=== PATIENT | female | born 1965 | race Caucasian/White ===

== ENCOUNTER 2020-07-25 06:27 | Day surgery (SDC) | payer OTHER ==
--- OUTSIDE RECORDS SUMMARY | 2020-07-25 06:30 | XMS ---
:1965 Author Organization [facility] Care Team Providers Name Role Phone BIANKA MCWILLIAMS Unavailable Unavailable SIM LARES Unavailable Unavailable TEENA FONSECA, [id number] Unavailable Unavailable BLANCA MOCTEZUMA Unavailable Unavailable PANCHO MARIE Unavailable Unavailable INDU TRENT Unavailable Unavailable SHAUN CUBA Unavailable SHAUN CUBA Unavailable JEVON BRIZUELA Unavailable Unavailable ERMELINDA MANNING Unavailable Unavailable Re-disclosure Warning The records that you are about to access may contain information from federally- assisted alcohol or drug abuse programs. If such information is present, then the following federally mandated warning applies: This information has been disclosed to you from records protected by federal confidentiality rules (42 CFR part 2). The federal rules prohibit you from making any further disclosure of this information unless further disclosure is expressly permitted by the written consent of the person to whom it pertains or as otherwise permitted by 42 CFR part 2. A general authorization for the release of medical or other information is NOT sufficient for this purpose. The Federal rules restrict any use of the information to criminally investigate or prosecute any alcohol or drug abuse patient.The records that you are about to access may contain highly sensitive health information, the redisclosure of which is protected by Article 27-F of the [facility] Public Health law. If you continue you may haveaccess to information: Regarding HIV / AIDS; Provided by facilities licensed or operated by the [facility] Office of Mental Health; or Provided by the [facility] Office for People With Developmental Disabilities. If such information is present, then the following [facility] mandated warning applies: This information has been disclosed to you from confidential records which are protected by state law. State law prohibits you from making any further disclosure of this information without the specific written consent of the person to whom it pertains, or as otherwise permitted by law. Any unauthorized further disclosure in violation of state law may result in a fine or residential sentence or both. A general authorization for the release of medical or other information is NOT sufficient authorization for further disclosure. Allergies and Adverse Reactions Type Description Substance Reaction Status Data Source(s ) Food allergy No Known Food No Known Food [facility] Allergies [facility] Drug allergy No Known Allergies No Known [facility] Allergies [facility] Care [facility] Drug allergy No Known Drug No Known Drug [facility] Encounters Encounter Providers Location Date Indications Data Source(s ) Attender: SHAUN 07/03/2020 [facility] Attender: SHAUN CUBA 07/03/2020 12:00:00 AM EDT [facility] ([facility]) Office Attender: SHAUN CUBA 07/03/2020 12:00:00 AM EDT [facility] ([facility]) Office Attender: SHAUN CUBA 07/03/2020 12:00:00 AM EDT [facility] ([facility]) Office Outpatient Attender: MILEY 06/13/2020 03:23:00 C82.97 [facility] MILEY EDT H ealt Care HUMAYUNReferrer: MCWILLIAMS Keven yomaira CARLTON C82.97 Outpatient Attender: OJ 03/16/2020 11:12:00 C82.97 [facility] AM EDT He alth Care HUMAYUNReferrer: OJ Keven yomaira OLIVEROSONG C82.97 Outpatient Attender: OJ 12/03/2019 06:00:00 C82.20 [facility] AM [facility] JEVON CrenshawAdmitter: Luisana Meadowserrer: DOMO MCWILLIAMSONG C82.20 Outpatient Attender: CHATA, 11/18/2019 01:57:00 C83.30 [facility] CHATA PM EST H ealth Care ZVIReferrer: OJ Corpora tion BIANKA C83.30 Outpatient Attender: OJ, 11/18/2019 11:08:00 C83.30 [facility] OJ AM EST Heal th Care DELONGReferrer: OJ Kevin oration BIANKA C83.30 Outpatient Attender: OJ, 09/23/2019 01:08:00 C82.97 [facility] HealthcareAd[facility] OJ PM EST [facility]al th Care DELONGReferrer: OJ Kevin oration BIANKA C82.97 Outpatient Attender: CHATA, 09/09/2019 06:00:00 C82.20 [facility] CHATA AM EST H ealth Care ZVIReferrer: MCWILLIAMS Corpora tion BIANKA C82.20 Outpatient Attender: OJ, 09/02/2019 06:00:00 C82.20 [facility] HealthcareAd[facility] AM EDT Health [facility] PATITO BRIZUELAeferrer: Omkar orporation BIANKA MCWILLIAMS C82.20 Outpatient Attender: OJ, 08/10/2019 03:48:00 C82.20 [facility] HealthcareAd[facility]: OJ PM EDT Heal th Care DELONGReferrer: OJ Kevin oration BIANKA C82.20 Outpatient Attender: NIGEL, 04/01/2019 07:00:00 D80.1 [facility] TAUSEEFAdmitter: CYNTHIA AM EDT Health Care MICHAELReferrer: OJ Cor poration BIANKA D80.1 Outpatient Attender: OJ, 03/11/2019 C83.00 [id number] [facility] LUDA, 06:00:00 AM EDT Health Care MITCHELLReferrer: OJ Co rporation BIANKA C83.00 [id number] Outpatient Attender: OJ, 02/25/2019 C83.30 [id number] [facility]villeAd[facility]: OJ, 06:00:00 AM EDT [id number] Health Care DELONGReferrer: Kevin MCWILLIAMS oration BIANKA C83.30 [id number] Outpatient Attender: [id number] MARIAN, 02/24/2019 10:11:00 C8 3.30 [facility] JOHNAdmitter: [id number] AM EDT [facility] Care TEENA FONSECAReferrer: BLANCA Reyes C83.30 Outpatient Attender: OJ 02/22/2019 C83.30 [id number] [facility] DELONGAdmitter: OJ, 06:00:00 AM EDT [id number] 1 Health Care DELONGReferrer: Kevin MCWILLIAMS oration BIANKA C83.30 [id number] Outpatient Attender: CHATA, 01/25/2019 06:00:00 C83.30 [facility] ZVIAdmitter: CHATA AM [facility] ZVIReferrer: OJAnatoliya tisanthosh CARLTON C83.30 Outpatient Admitter: CHATA, 04/09/2018 06:00:00 AM [facility] EDT Health Care Co rporation Insurance Providers Payer name Policy type Policy ID Covered Covered constitution party's Policy P arielle / Coverage constitution party ID relationship to [employer] ormation type davis HIP MEDICARE [id number] [place] [id number] 1 [id number] PART B [facility] [id number] [facility] [id number] HEALTH PLAN Problems, Conditions, and Diagnoses Code Display Name Description Problem Effective Data Type Dates Source(s) M79.67 Pain in left foot PAIN IN LEFT FOOT Problem 07/03/2020 [facility] ([facility] 12:00:00 [facility]) M79.67 Pain in right foot PAIN IN RIGHT FOOT Problem 0 [facility] ([facility] 12:00:00 [facility] M20.12 Hallux valgus HALLUX VALGUS Problem 07/03/2020 [facility] ( St (acquired), left foot (ACQUIRED), LEFT FOOT 12: 00:00 [facility], ) M20.11 Hallux valgus HALLUX VALGUS Problem 07/03/2020 [facility] ( St (acquired), right foot (ACQUIRED), RIGHT FOOT 1 2:00:00 Teena's AM [facility] Medical, ) 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, FOLLICULAR LYMPHOMA, Diagnosis 06/13 [place] unspecified, spleen UNSPECIFIED, SPLEEN 03:23:0 0 [facility] [employer] C82.20 Follicular lymphoma FOLLICULAR LYMPHOMA Diagnosis [address] [place] [address] grade III, unspecified, GRADE III, UNSPECIFIED, 06:00:00 [facility] unspecified site UNSPECIFIED SITE [facility] [employer] 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 Diagnosis 11/18 [place] lymphoma, unspecified LYMPHOMA, UNSPECIFIED 01: 57:00 [facility] [employer] 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 07: 00:00 On license of [facility] [employer] R59.0 Localized enlarged LOCALIZED ENLARGED Diagnosis 8 [place] lymph nodes LYMPH NODES 06:00:00 On license of [facility] [employer] J34.89 Other specified OTHER SPECIFIED Diagnosis 04/09/2018 [place] disorders of nose and DISORDERS OF NOSE AND 06: 00:00 [facility] nasal sinuses NASAL SINUSES [facility] Surgeries/Procedures Procedure Description Date Indications Data Source(s) OFFICE OUTPATIENT NEW 07/03/2020 [facility] (Gt's 20 MINUTES 12:00:00 AM [facility] Medical, ) Results ID Date Data Source [id number] 07/21/2020 01:19:00 PM EDT [facility] Name Value Range Interpretation Description Data Sup porting Code Source(s) Document(s ) SARS [facility] coronavirus 2 RNA This lab was ordered by [facility] and reported by [facility]. Procedure Social History Code Duration Value Status Description Data Source(s ) Smoking 07/03/2020 Unknown if ever completed Unknown if ever [facility] EN (Gt's 12:00:00 AM EDT smoked smoked Medical, )
[2020-07-25 06:50] VITALS: BMI 21.2
[2020-07-25] MEDS ORDERED: DEXAMETHASONE SOD PHOSPHATE 4 MG/1 ML VIAL ONE ×2 (07:17→07:48)
[2020-07-25] MEDS ORDERED: BUPIVACAINE HCL/PF 0.5% (5MG/ML) 10 ML VIAL ONE ×2 (07:18→07:28)
[2020-07-25] MEDS ORDERED: methylPREDNISolone ACET (DEPO) 40 MG/1 ML VIAL ONE (07:18)
[2020-07-25] MEDS ORDERED: LIDOCAINE HCL 1%, 10 MG/ML (20ML VIAL) ONE (07:28)
[2020-07-25] MEDS ORDERED: MIDAZOLAM HCL 2 MG/2 ML SINGLE DOSE VIAL ONE (07:37)
[2020-07-25] MEDS ORDERED: SUCCINYLCHOLINE CHLORIDE 200 MG/10 ML SYRINGE ONE (07:42)
[2020-07-25] MEDS ORDERED: PROPOFOL 20 ML ONE ×3 (07:42→08:20)
[2020-07-25] MEDS ORDERED: ONDANSETRON 4 MG/2 ML VIAL ONE (07:48)
[2020-07-25] MEDS ORDERED: ceFAZolin SODIUM 1 GM VIAL ONE (07:48)
[2020-07-25] MEDS ORDERED: LIDOCAINE HCL 1%, 10 MG/ML (20ML VIAL) NR ONE (07:55)
[2020-07-25] MEDS ORDERED: BUPIVACAINE HCL/PF 0.5% (5MG/ML) 10 ML VIAL IJ ONE ×2 (07:55→08:40)
[2020-07-25] MEDS ORDERED: BENZOIN/ALOE VERA/STORAX/TOLU 58 ML BOTTLE ONE (08:38)
[2020-07-25] MEDS ORDERED: DEXAMETHASONE SOD PHOSPHATE 4 MG/1 ML VIAL IVPUSH ONE (08:40)
[2020-07-25 09:10] VITALS: TEMP 98.1
[2020-07-25 10:32] VITALS: BP 112/68; PULSE 77
--- NOTE | 2020-07-27 10:17 | OP ---
DATE OF OPERATION: 07/25/2020 SURGEON: Bossman Augustine DPM BIOLOGY LECTURER SURGEON: David Vera DPM BIOLOGY LECTURER: PREPROCEDURE DIAGNOSIS: Left foot bunion deformity. POSTPROCEDURE DIAGNOSIS: Left foot bunion deformity. PROCEDURE: Left foot cheilectomy, first metatarsophalangeal joint. ANESTHESIA: Local with IV sedation. HEMOSTASIS: Pneumatic ankle tourniquet at 250 mmHg. ESTIMATED BLOOD LOSS: 5 mL MATERIALS: 3-0 Vicryl, 4-0 Vicryl, 4-0 nylon. INJECTABLES: 20 mL of 1:1 mixture of 1% lidocaine and 0.5% Marcaine plain. COMPLICATIONS: None. PROCEDURE IN DETAIL: Patient was brought to the operating room and placed on the operating room table in the supine position. After IV sedation was established, a local infiltrative block was given to the left foot first ray with the Navarro block utilizing 20 mL of 1% lidocaine and 0.5% Marcaine plain. A well-padded pneumatic ankle tourniquet was then placed on the left lower extremity. The left foot was then prepped, scrubbed and draped in the usual aseptic technique. Timeout was performed. Esmarch bandage was used to exsanguinate the left lower extremity and the tourniquet was inflated to 250 mmHg. Attention was next directed to the left foot 1st metatarsophalangeal joint where a 4-cm linear longitudinal incision was made medial to and parallel to the extensor hallucis longus tendon. Incision was deepened down through skin and subcutaneous tissue using sharp and blunt dissection with care being taken to protect and retract all vital neurovascular structures. All bleeders were cauterized and ligated as necessary. Under adequate retraction of soft tissue structures, a No. 15 blade was then used to perform to a linear capsulotomy. The periosteal and capsular tissue were then reflected off the 1st metatarsal using the [place] elevator as well as Claudia-Brown forceps and a No. 15 blade. Prominent medial imminence of the 1st metatarsal head was exposed and resected using the sagittal saw and passed from the operative field. All dorsal osteophyte of the 1st metatarsal was isolated and resected using a sagittal saw and passed from the operative field. A rotary bur was then used to smooth all remaining surfaces of the 1st metatarsal head. Next, the cartilage of the 1st metatarsal head was evaluated, and it was noted to have greater than 50% degeneration. An 0.045 K-wire was used to drill holes into the 1st metatarsal head via fenestration to help facilitate the growth of fibrocartilage. At this time, surgical sites were flushed with copious amounts of normal saline. First metatarsophalangeal joint range of motion was tested on the table and was noted to be 45 to 50 degrees. Deep closure was facilitated with 3-0 Vicryl. Subcutaneous closure was facilitated with 4-0 Vicryl and the skin was reapproximated with 4-0 nylon. Postop dressing applied consisting of Betadine-soaked Adaptic, 4 x 4 gauze, ABD pad, Cierra, Sixto bandage. Left lower extremity tourniquet was deflated and immediate hyperemic response was noted to all digits of the left foot. The patient tolerated the procedure well and was transferred to the recovery room with vital signs stable and neurovascular status intact to the left foot. ALEX Rothman/[id number]
--- NOTE | 2020-07-28 16:52 | PATH ---
Surgical Pathology Report Patient Name: MELANIE WALSH [facility]. Rec. #: [id number] /Age/Gender: 1965 (Age: 54) / F Account: [id number] Location: [facility] Taken: 07/25/2020 Received: 07/25/2020 Reported: 07/28/2020 Physicians: David Vera DPM Specimen(s) Received BONE METATARSAL PHALANGEAL JOINT LEFT FOOT Clinical History Left foot hallux valgus (acquired) Final Diagnosis BONE, FIRST METATARSAL PHALANGEAL JOINT, LEFT FOOT, BUNIONECTOMY: PORTIONS OF CARTILAGE-CAPPED BONE AND FIBROCOLLAGENOUS TISSUE. Electronically Signed Marguerite Fernandez M.D. Gross Description Received in formalin labeled "bone first metatarsal phalangeal joint left foot," are 3 boles-yellow portions of bone averaging 1.3 x 0.7 x 0.3 cm. Also received within the same container is a 1.2 x 0.9 x 0.4 cm boles portion of soft tissue. Ditch Inspector sections are submitted in one cassette, following decalcification. 07/26/2020 saudi07/26/2020
== END 2020-07-25 10:55 | disposition home or self-care (01) ==
LOC: FASU 06:27
PROVIDERS: ATTEND Podiatrist Foot Surgery
PROC: 0QSP04Z Reposition Left Metatarsal with Internal Fixation Device, Open Approach (ICD-10-PCS; principal; 2020-07-25 08:01)
DX: M20.12 Hallux valgus (acquired), left foot (principal); M21.612 Bunion of left foot
CPT/HCPCS: 73630-TC-LT; 88304-TC; 88311-TC